=== PATIENT | female | born 1990 | race Caucasian/White ===

== ENCOUNTER 2019-01-31 16:33 | Observation (INO) ==
[2019-01-31] MEDS ORDERED: Isovue-370 500 ML BOTTLE IVP ONE (16:51)
[2019-01-31] MEDS ORDERED: 0.9 % Sodium Chloride 1,000 ML IVC ONE (16:51)
[2019-01-31 17:29] LABS: Basophils % 0.2 %; Eosinophils # 0.1 K/mcL (0.0-0.6); Eosinophils % 0.7 %; Hematocrit 37.1 % (35.3-44.9); Hemoglobin 12.7 g/dL (11.5-15.4); Immature Granulocytes % 0.2 % (0-4); Lymphocytes % 12.7 %; Mean Corpuscular HGB Conc 34.2 g/dL (31.6-35.5); Mean Corpuscular Hemoglobin 30.4 pg (28.0-33.3); Mean Corpuscular Volume 88.8 fL (83.0-100.0); Mean Platelet Volume 9.3 fL (9.4-12.4); Monocytes # 0.7 K/mcL (0.0-1.3); Monocytes % 7.3 %; Neutrophils # 7.7 K/mcL (1.6-8.9); Platelet Count 217 K/mcL (140-400); Red Blood Count 4.18 M/mcL (3.82-4.97); Red Cell Distribution Width 11.8 % (11.5-14.5); Segmented Neutrophils % 78.9 %
[2019-01-31 17:30] LABS: Lymphocytes # 1.2 K/mcL (0.6-4.6); White Blood Count 9.8 K/mcL (4.3-11.1)
[2019-01-31 17:30] LABS: Bilirubin,Urine Negative (Negative); Blood,Urine Trace (Negative); Clarity,Urine Clear (Clear); Color,Urine Yellow (Yellow); Glucose,Urine (UA) Normal (Normal); Ketones,Urine Negative (Negative); Leukocyte Esterase,Urine Negative (Negative); Nitrite,Urine Negative (Negative); Protein,Urine Negative (Neg-Trace); Specific Gravity,Urine 1.013 (1.010-1.025); Urobilinogen,Urine Normal (Normal)
[2019-01-31 17:32] LABS: Bacteria,Urine None Seen per hpf (None-Few); Hyaline Casts,Urine None Seen per lpf (None-Few); Squamous Epithelial Cell,Urine Moderate per lpf (None-Few); WBC,Urine 0-3 per hpf (0-3)
[2019-01-31 17:44] LABS: BUN/Creatinine Ratio 32 (6-26); Blood Urea Nitrogen 22 mg/dL (6-20); Calcium 9.3 mg/dL (8.6-10.3); Carbon Dioxide 25 mEq/L (23-29); Chloride 107 mEq/L (98-107); Glucose 96 mg/dL (70-105); Osmolality,Calculated 291 (280-300); Potassium 3.9 mEq/L (3.5-5.1); Sodium 139 mEq/L (136-145); eGFR For African Americans > 60 (> 60); eGFR For Non-African Americans > 60 (> 60)
[2019-01-31 19:05] LABS: INR 1.2; Prothrombin Time 13.9 Seconds (9.4-12.1)
[2019-01-31 19:07] LABS: Activated Partial Thrombo Time 43.6 Seconds (26.0-36.0)
[2019-01-31] MEDS ORDERED: Piperacillin/Tazobactam 3.375 GM in 0.9 % Sodium Chloride Mini Bag 100 ML IVPB ONE (19:38)
[2019-01-31] MEDS ORDERED: 0.9 % Sodium Chloride 1,000 ML IVC SCH ×2 (20:45→21:30)
[2019-01-31] MEDS ORDERED: Ondansetron 4 MG/2 ML VIAL IVP PRN (21:30)
[2019-02-01] MEDS: Piperacillin/Tazobactam 3.375 GM in 0.9 % Sodium Chloride Mini Bag 100 ML IVPB SCH ×2 (04:18→11:35)
[2019-02-01 05:53] LABS: White Blood Count 5.3 K/mcL (4.3-11.1)
[2019-02-01 05:54] LABS: Basophils % 0.4 %; Eosinophils # 0.1 K/mcL (0.0-0.6); Eosinophils % 1.9 %; Hematocrit 34.8 % (35.3-44.9); Hemoglobin 11.4 g/dL (11.5-15.4); Immature Granulocytes % 0.6 % (0-4); Lymphocytes # 1.3 K/mcL (0.6-4.6); Lymphocytes % 24.4 %; Mean Corpuscular HGB Conc 32.8 g/dL (31.6-35.5); Mean Corpuscular Hemoglobin 30.6 pg (28.0-33.3); Mean Corpuscular Volume 93.3 fL (83.0-100.0); Mean Platelet Volume 9.2 fL (9.4-12.4); Monocytes # 0.4 K/mcL (0.0-1.3); Monocytes % 6.6 %; Neutrophils # 3.5 K/mcL (1.6-8.9); Platelet Count 170 K/mcL (140-400); Red Blood Count 3.73 M/mcL (3.82-4.97); Red Cell Distribution Width 11.9 % (11.5-14.5); Segmented Neutrophils % 66.1 %
[2019-02-01 06:51] LABS: BUN/Creatinine Ratio 20 (6-26); Blood Urea Nitrogen 14 mg/dL (6-20); Calcium 8.7 mg/dL (8.6-10.3); Carbon Dioxide 26 mEq/L (23-29); Chloride 107 mEq/L (98-107); Glucose 100 mg/dL (70-105); Osmolality,Calculated 293 (280-300); Sodium 141 mEq/L (136-145); eGFR For African Americans > 60 (> 60); eGFR For Non-African Americans > 60 (> 60)
[2019-02-01] MEDS ORDERED: Bupivacaine/EPI 1:200k 0.5%PF 30 ML VIAL ONE (18:18)
[2019-02-01] MEDS ORDERED: Lidocaine -MPF 2% 2 ML VIAL ONE (18:32)
[2019-02-01] MEDS ORDERED: Ondansetron 4 MG/2 ML VIAL ONE ×3 (18:32→21:24)
[2019-02-01] MEDS ORDERED: *HR* Rocuronium Bromide 50 MG/5 ML VIAL ONE ×2 (18:32→20:17)
[2019-02-01] MEDS ORDERED: *HR* FentaNYL (PF) 100 MCG/2 ML VIAL ONE ×2 (18:33→20:16)
[2019-02-01] MEDS ORDERED: *HR* Propofol 200 MG/20 ML VIAL IVP ONE ×2 (18:33→20:16)
[2019-02-01] MEDS ORDERED: Acetaminophen IV 1,000 MG/100 ML INFUS..BTL ONE (19:38)
[2019-02-01] MEDS ORDERED: *HR* Promethazine 25 MG/ML VIAL IVP PRN (19:40)
[2019-02-01] MEDS ORDERED: Ondansetron 4 MG/2 ML VIAL IVP ONE (19:40)
[2019-02-01] MEDS ORDERED: *HR* Meperidine 25 MG/ML SYRINGE IVP PRN (19:40)
[2019-02-01] MEDS ORDERED: *HR* HYDROmorphone (PF) 1 MG/ML SYRINGE IVP PRN (19:40)
[2019-02-01] MEDS ORDERED: *HR* Midazolam HCl 2 MG/2 ML VIAL ONE (20:16)
[2019-02-01] MEDS ORDERED: Lidocaine -MPF 1% 5 ML AMPUL ONE (20:17)
[2019-02-01] MEDS ORDERED: Ondansetron 4 MG/2 ML VIAL IVP PRN (22:38)
[2019-02-01] MEDS ORDERED: 0.9 % Sodium Chloride 1,000 ML IVC SCH (22:38)
[2019-02-02] MEDS ORDERED: Piperacillin/Tazobactam 3.375 GM in 0.9 % Sodium Chloride Mini Bag 100 ML IVPB SCH (04:00)
[2019-02-02 06:51] VITALS: BP 98/63
[2019-02-02] MEDS ORDERED: Acetaminophen 325 MG TABLET PO STA (08:31)
[2019-02-02] MEDS ORDERED: *HR* Rivaroxaban 15 MG TABLET PO SCH (09:00)
== END 2019-02-02 13:44 | disposition home or self-care (01) ==
LOC: 3BNU 16:33 → EMEROOARM 16:33 → 3BNU 21:36
PROVIDERS: ADMIT Surgery; ATTEND Surgery